=== PATIENT | female | born 1955 | race Caucasian/White ===

== ENCOUNTER 2019-10-09 15:40 | Inpatient (IN) ==
--- NOTE | 2019-10-09 15:57 | PROVIDER DOCUMENTATION ---
HPI-Screening - General Chief Complaint: Shortness of Breath Stated Complaint: SOB BEING TREATED FOR PNEUMONIA Time Seen by Provider: 10/09/19 15:52 Source: patient Allergies/Adverse Reactions: Allergies Allergy/AdvReac Type Severity Reaction Status Date / Time aspirin Allergy Unknown Unknown Verified 08/16/17 12:13 codeine [Codeine] Allergy Unknown Unknown Verified 08/16/17 12:13 Home Medications: Home Medication List Medication Instructions Recorded Confirmed Last Taken Type Carvedilol 12.5 mg PO BID 05/28/13 08/16/17 1 Day Ago History ~08/15/17 Levothyroxine [Synthroid] 75 microgm PO DAILY 05/28/13 08/16/17 1 Day Ago History ~08/15/17 Losartan Potassium [Cozaar] 100 mg PO DAILY 05/28/13 08/16/17 1 Day Ago History ~08/15/17 Trazodone [Desyrel] 150 mg PO QHS 05/28/13 08/16/17 1 Day Ago History ~08/15/17 Diltiazem HCl [Diltiazem ER] 240 mg PO DAILY 01/12/14 08/16/17 1 Day Ago History ~08/15/17 Methocarbamol [Robaxin] 500 - 1,000 mg PO BID PRN #60 08/16/17 Unknown Rx tablet Patient arrived via EMS?: No HPI: Patient is a 64yo F who presents with complaints of SOB, chest tightness, and CP. Reports she is currently being treated for PNA (taking Augmentin) and was told to come to ED by PCP. Reports hx of asthma and states no relief with Albuterol inhaler. Denies fever. Upon examination, patient is able to speak in full sentences, no splinting/accessory muscle usage/retractions/stridor noted. Triage O2 sat 99% on RA. Physical Exam-Screening - PHYSICAL EXAM-ADULT Initial Vital Signs Reviewed: Yes - CONSTITUTIONAL General Appearance: alert, mild distress. negative: lethargic, slow to respond - EYES Eyes: PERRL/EOMI, pink conjunctivae - HEAD, EARS, NOSE, MOUTH & THROAT HENMT: normocephalic/atraumatic, moist mucous membranes - NECK Neck: full range of motion, supple, normal inspection - RESPIRATORY Respiratory: no respiratory distress, no accessory muscle use, wheezing (expiratory; all lung grover). negative: crackles, rales, rhonchi, stridor, retractions, splinting, decreased rate, increased rate - CARDIOVASCULAR Cardiovascular: regular rate, rhythm - SKIN Integumentary: normal color, warm/dry. negative: cyanosis, jaundice, mottled, pallor - NEUROLOGIC Neurologic: grossly normal. negative: aphasia, EOM palsy - PSYCHIATRIC Psych/Mental Status: normal mood/affect, normal thought content, normal thought process, oriented x 3 Screening Depart - Departure ED Screening Disposition: Continued in ED for Treatment Referrals and Follow-Ups: Brent Higginbotham Jr, MD [Primary Care Provider] - Attestation - Physician/ INDRA Attestation Patient care was provided by Advanced Practice Provider:: Yes Advanced Practice Provider:: Nikkie Mancilla Advanced Practice Provider documentation review:: The Mid-level provider documentation, treatment plan and medical decision making was reviewed by the physician who agrees with all treatment and medical decision making by the MLP. The physician spent face to face time with patient:: No Advanced Practice Provider documentation review:: Supervising physician onsite and consulted in the evaluation and care of this patient. The physician did not have a face to face encounter with the patient.
[2019-10-09] MEDS ORDERED: DUONEB (A & A) INH ONE (16:09)
--- NOTE | 2019-10-09 16:14 | ED EKG INTERP ---
This chart was entered by Senia Flanagan Scribe, acting as scribe for Nikkie Mancilla CRNP. EKG Interpretation - EKG Time of EKG reading by physician:: 16:08 EKG Read and Signed by:: Tayo Raygoza EKG Interpretation (*Must complete 3 of following elements*): Normal (voltage criteria for L ventricular hypertrophy) Rate: 83 Rhythm: NSR Attestation - Physician/ INDRA Attestation Patient care was provided by Advanced Practice Provider:: Yes Advanced Practice Provider:: Nikkie Mancilla Advanced Practice Provider documentation review:: The Mid-level provider documentation, treatment plan and medical decision making was reviewed by the physician who agrees with all treatment and medical decision making by the MLP. The physician spent face to face time with patient:: No Advanced Practice Provider documentation review:: Supervising physician onsite and consulted in the evaluation and care of this patient. The physician did not have a face to face encounter with the patient. This chart was documented by the indicated scribe, (Senia Flanagan Scribe) and accurately reflects the services I performed and decisions made by me, Nikkie Mancilla CRNP, as attested by the provider's signature.
[2019-10-09 16:15] LABS: BASO# 0.02 X1000 (0.0-0.2); BASO% 0.3 % (0.0-0.8); EOS# 0.11 X1000 (0.0-0.7); EOS% 1.8 % (0.0-10.0); HEMATOCRIT 34.4 % (37.0-47.0); LYMPH# 2.06 X1000 (1.2-3.4); LYMPH% 33.1 % (20.5-51.1); MCH 23.4 PG (27-31); MCHC 29.1 g/dL (33-37); MCV 80.6 FL (81-99); MONO# 0.28 X1000 (0.11-0.59); MONO% 4.5 % (1.7-9.3); MPV 9.2 FL (7.4-10.4); NEUT# 3.75 X1000 (1.4-6.5); NEUT% 60.3 % (42.2-75.2); PLT 316 X1000 (130-400); RBC 4.27 XMIL (4.2-5.4); RDW 16.1 % (11.5-14.5); WBC 6.22 X1000 (4.8-10.8)
--- NOTE | 2019-10-09 16:18 | Diag Imaging Result Doc PS360 ---
EXAM: CHEST-2 VIEWS HISTORY: sob TECHNIQUE: Two views COMPARISON: 08/16/2017 FINDINGS: The lungs are well expanded. The heart is not enlarged. The vessels are not distended. There are increased interstitial markings in the lingular segment of the left upper lobe. No pleural effusions. IMPRESSION: Left upper lobe pneumonia. Electronically signed by Aakash Vasquez 10/09/2019 4:16 PM
[2019-10-09 16:34] LABS: INR 1.02; PROTIME 13.5 Seconds (11.0-16.0)
[2019-10-09 16:36] LABS: AGAP 14; ALB/GLOB RATIO 1.3; ALBUMIN 3.5 g/dL (3.5-5.0); ALKALINE PHOSPHATASE 65 U/L (32-104); BUN 9 mg/dL (8-22); CALCIUM 8.6 mg/dL (8.8-10.2); CHLORIDE 105 mmol/L (98-107); CK PROFILE 59 U/L (24-173); COSMO 283; CREATININE 0.8 mg/dL (0.5-0.9); ESTIMATED GFR > 60; GLUCOSE 78 mg/dL (70-104); GOT 13 U/L (10-30); GPT 7 U/L (10-36); POTASSIUM 4.2 mmol/L (3.5-5.1); SODIUM 143 mmol/L (136-145); TCO2 24 mmol/L (25-35); TOTAL BILIRUBIN 0.25 mg/dL (0.20-1.00); TOTAL PROTEIN 6.1 g/dL (6.3-8.3)
[2019-10-09] MEDS ORDERED: LEVAQUIN 750 MG/D5W 750 MG/150 ML IVPB IV ONE (16:58)
--- NOTE | 2019-10-09 17:04 | PROVIDER DOCUMENTATION ---
HPI-Respiratory General - General Chief Complaint: Shortness of Breath Stated Complaint: SOB BEING TREATED FOR PNEUMONIA Time Seen by Provider: 10/09/19 15:52 Source: patient Allergies/Adverse Reactions: Patient Allergies Allergy/AdvReac Type Severity Reaction Status Date / Time codeine [Codeine] Allergy Unknown SWELLING Verified 10/09/19 23:10 Home Medications: Home Medication List Medication Instructions Recorded Confirmed Last Taken Type Carvedilol 12.5 mg PO BID 05/28/13 10/09/19 1 Day Ago History ~08/15/17 Levothyroxine [Synthroid] 75 microgm PO DAILY 05/28/13 10/09/19 1 Day Ago History ~08/15/17 Losartan Potassium [Cozaar] 100 mg PO DAILY 05/28/13 10/09/19 1 Day Ago History ~08/15/17 Trazodone [Desyrel] 150 mg PO QHS 05/28/13 10/09/19 1 Day Ago History ~08/15/17 Aspirin [Aspir-Low] 81 mg PO DAILY 10/09/19 10/09/19 Unknown History Diltiazem HCl [Cartia Xt] 240 mg PO DAILY 10/09/19 10/09/19 Unknown History Fluticasone/Salmet 250/50 INH 1 puff INH RTBID 10/09/19 10/09/19 Unknown History [Advair 250/50 Diskus] Multivitamin [Daily Multiple 1 tab PO DAILY 10/09/19 10/09/19 Unknown History Vitamin] Omeprazole 40 mg PO DAILY 10/09/19 10/09/19 Unknown History Solifenacin Succinate 10 mg PO QHS 10/09/19 10/09/19 Unknown History - History of Present Illness-Resp Nature of Presenting Problem: Patient is a 64yo F who presents with complaints of SOB, chest tightness, and CP. Reports she is currently being treated for PNA (taking Augmentin) and was told to come to ED by PCP. Reports hx of asthma and states no relief with Albuterol inhaler. Denies fever. Upon examination, patient is able to speak in full sentences, no splinting/accessory muscle usage/retractions/stridor noted. Triage O2 sat 99% on RA. Quality of Pain: reports: aching, tightness Severity in ED: reports: moderate Onset/Duration: reports: other (x2 weeks) Timing: reports: still present, getting worse Context: reports: recent URI Cough Quality/Degree: reports: moderate, productive cough Episode Frequency: occasional episodes Current Respiratory Medication Therapy: Initiated see nurses note Modifying Factors: improves with: nothing. worse with: exertion Associated Symptoms: reports: chest pain/soreness, cough, short of breath, wheezing. denies: fever/chills Similar Symptoms Previously?: Yes Recently seen or treated by another doctor?: Yes (saw PCP 2 weeks ago) Review of Systems - Adult - REVIEW OF SYSTEMS - ADULT Constitutional: reports: no symptoms reported. denies: chills, fever Eyes: reports: no symptoms reported Ears, Nose, Mouth & Throat: reports: no symptoms reported. denies: ear pain, throat pain Cardiovascular: reports: see HPI, chest pain. denies: syncope Respiratory: reports: see HPI, cough, dyspnea on exertion, shortness of breath, wheezing Gastrointestinal: reports: no symptoms reported. denies: abdominal pain, nausea, vomiting Genitourinary: reports: no symptoms reported Musculoskeletal: reports: no symptoms reported Integumentary: reports: no symptoms reported Neurological: reports: no symptoms reported Psychiatric: reports: no symptoms reported Endocrine: reports: no symptoms reported Past History - Adult - PAST MEDICAL HISTORY-ADULT Review of Records: reports: Nursing Assessment Review, Medications Reviewed, Social history reviewed & non-contributory. Major Childhood Illnesses: reports: denies history Cardiovascular: reports: arrhythmia, HTN, palpitations Respiratory: reports: asthma Gastrointestinal: reports: GERD Obstetrical/Gynecological: reports: denies history Genitourinary: reports: denies history Musculoskeletal: reports: arthritis, chronic pain, orthopedic injury (old rt elbow fx) Neurological: reports: CVA, other (dizziness) Psychiatric: reports: anxiety Endocrine/Immune: reports: Diabetes, thyroid disorder Other Conditions: reports: denies history - PRIOR SURGERIES/PROCEDURES Surgical/Procedure History: reports: reviewed, not pertinent, hysterectomy, hernia repair - PRIOR HOSPITALIZATIONS Prior Hospitalizations: reports: for other non-related - IMMUNIZATION STATUS Childhood Immunizations: See Nurse Assessment Flu Vaccine: See Nurse Assessment - FAMILY HISTORY Family History: aortic disease, sudden , CAD under 55yo, CVA/TIA, hereditary disease - SOCIAL HISTORY Smoking: denies, non-smoker Physical Exam-General - PHYSICAL EXAM-ADULT Initial Vital Signs Reviewed: Yes - CONSTITUTIONAL General Appearance: alert, mild distress. negative: lethargic, slow to respond, obtunded - EYES Eyes: PERRL/EOMI, pink conjunctivae. negative: EOM palsy, scleral icterus - HEAD, EARS, NOSE, MOUTH & THROAT HENMT: normocephalic/atraumatic, moist mucous membranes. negative: angioedema - NECK Neck: non-tender, full range of motion, supple, normal inspection. negative: C- spine tenderness, limited range of motion - RESPIRATORY Respiratory: chest non-tender, no respiratory distress, no accessory muscle use, decreased breath sounds (diminished L lobes), wheezing. negative: crackles, rales, rhonchi, retractions, splinting, increased rate - CARDIOVASCULAR Cardiovascular: regular rate, rhythm - MUSCULOSKELETAL Back Exam: normal inspection Extremity: normal range of motion, non-tender - SKIN Integumentary: normal color, warm/dry. negative: cyanosis, jaundice, mottled, pallor - NEUROLOGIC Neurologic: grossly normal. negative: abnormal gait, aphasia, EOM palsy - PSYCHIATRIC Psych/Mental Status: normal mood/affect, normal thought content, normal thought process, oriented x 3 Progress - PLAN OF CARE/RESULTS Progress/Plan/Lab Results: Laboratory Results - last 24 hr 10/09/19 10/09/19 10/09/19 17:25 18:05 18:11 Specimen Type ARTERIAL Sample Site R RADIAL pH 7.51 H pCO2 31 L pO2 91 HCO3 26.5 H Base Excess 2.0 Oxyhemoglobin 96.6 ABG O2 Sat (Calculated) 14.0 L ABG O2 Saturation 99.2 ABG Carboxyhemoglobin 1.60 ABG Methemoglobin 1.1 Maxwell Test YES A-a O2 Difference 20.0 Total Hemoglobin 10.2 L Lactate 1.10 Blood Gas Modality ROOM AIR FiO2 % 21.0 POC Glucose Plasma Lactate 1.1 Urine Source CLEAN CATCH Urine Color YELLOW Urine Turbidity CLEAR Urine pH 7.0 Ur Specific [place] 1.008 Urine Protein NEGATIVE Ur Glucose (Stick) NEGATIVE Ur Ketones (Stick) NEGATIVE Urine Blood NEGATIVE Urine Nitrite NEGATIVE Urine Bilirubin NEGATIVE Urobilinogen Dipstick NORMAL Urine Leukocytes TRACE A Urine WBC (Auto) <10 Urine RBC (Auto) <10 U Epithel Cells (Auto) <10 Urine Bacteria (Auto) NEGATIVE 10/09/19 19:35 Specimen Type Sample Site pH pCO2 pO2 HCO3 Base Excess Oxyhemoglobin ABG O2 Sat (Calculated) ABG O2 Saturation ABG Carboxyhemoglobin ABG Methemoglobin Maxwell Test A-a O2 Difference Total Hemoglobin Lactate Blood Gas Modality FiO2 % POC Glucose 81 Plasma Lactate Urine Source Urine Color Urine Turbidity Urine pH Ur Specific [place] Urine Protein Ur Glucose (Stick) Ur Ketones (Stick) Urine Blood Urine Nitrite Urine Bilirubin Urobilinogen Dipstick Urine Leukocytes Urine WBC (Auto) Urine RBC (Auto) U Epithel Cells (Auto) Urine Bacteria (Auto) Orders Category Date Time Status Admit - [facility] Routine AdmDCTranf 10/09/19 17:49 Active Activity - Up Ad Johanna ORDERED Care 10/09/19 22:06 Active Blood Glucose Finger Stick [FSBS/Accucheck Result] Q4HR Care 10/09/19 17:54 Active Call Admitting on Arrival AT ADMISSION Care 10/09/19 22:06 Completed Cardiac Monitoring DIRECTED Care 10/09/19 15:58 Completed FALL Precautions now Care 10/09/19 22:06 Active Neurological Check ORDERED Care 10/09/19 22:06 Active Oxygen Therapy- ED Nursing DIRECTED Care 10/09/19 15:58 Completed Saline Loc NOW Care 10/09/19 15:58 Completed Vital Signs Order ORDERED Care 10/09/19 22:06 Active Z-Document. for Tele Applied ORDERED Care 10/09/19 22:06 Completed Diabetic Diet Diet 10/09/19 22:06 Active CHEST-2 VIEWS [RAD] Stat Exams 10/09/19 15:58 Completed A1C HGB W EST AVG GLUCOSE [CHEM] Routine Lab 10/10/19 07:44 Completed ABG [RESP] Routine Lab 10/09/19 18:05 Completed BLOOD CULTURE [BLDCUL] Stat Lab 10/09/19 17:33 Results CBC WITH DIFF [HEME] Routine Lab 10/10/19 07:44 Completed CBC WITH ELECTRONIC DIFF [HEME] Stat Lab 10/09/19 16:07 Completed CK PROFILE [SP CHEM] Stat Lab 10/09/19 16:07 Completed CMP [COMPREHENSIVE METABOLIC PANEL] [CHEM] Routine Lab 10/10/19 07:44 Completed COMPREHENSIVE METABOLIC PANEL [CHEM] Stat Lab 10/09/19 16:07 Completed FREE T4 Routine Lab 10/10/19 07:44 Completed LACTATE, PLASMA [CHEM] Stat Lab 10/09/19 17:25 Completed MAGNESIUM [CHEM] Routine Lab 10/10/19 07:44 Completed PRO B-NATRIURETIC PEPTIDE Stat Lab 10/09/19 16:07 Completed PROTIME WITH INR [COAG] Stat Lab 10/09/19 16:07 Completed PTT [COAG] Stat Lab 10/09/19 16:07 Completed TROPONIN T HIGH SENSITIVITY Stat Lab 10/09/19 16:07 Completed TSH Routine Lab 10/10/19 07:44 Completed URINALYSIS W/POSS RFLX CULT [URINALYSIS] Stat Lab 10/09/19 18:11 Completed VITAMIN B12 Routine Lab 10/10/19 07:44 Completed Albuterol 2.5MG/Ipratrop 0.5MG [Duoneb (A & A)] Med 10/09/19 16:09 Discontinued 3 ml INH NOW ONE Albuterol 2.5MG/Ipratrop 0.5MG [Duoneb (A & A)] Med 10/09/19 22:06 Active 3 ml INH RTQ6H Aspirin EC Med 10/10/19 09:00 Active 81 mg PO DAILY Carvedilol [Coreg] Med 10/09/19 22:06 Active 12.5 mg PO BID Diltiazem C.d. [Cardizem Cd] Med 10/10/19 09:00 Active 240 mg PO DAILY Enoxaparin [Lovenox] Med 10/09/19 22:06 Active 30 mg SUBQ Q24H Fluticasone/Salmet 250/50 INH [Advair 250/50 Diskus] Med 10/09/19 22:06 Active 1 puff INH RTBID Insulin Human Regular [Humulin R] Med 10/09/19 17:54 Discontinued See Protocol SUBQ NOW ONE Levofloxacin 500 mg/D5w [Levaquin 500 mg/D5w] Med 10/10/19 11:00 Active 500 mg in 100 ml IV Q24H Levofloxacin 750 mg/D5w [Levaquin 750 mg/D5w] Med 10/09/19 16:58 Discontinued 750 mg in 150 ml IV NOW Levothyroxine [Synthroid] Med 10/10/19 07:00 Active 75 microgm PO DAILY@0700 Losartan [Cozaar] Med 10/10/19 09:00 Active 100 mg PO DAILY Multivit,Fe,Ca,FA & Min [Thera M Plus] Med 10/10/19 09:00 Active 1 each PO DAILY Ns + KCl 20 Meq 1,000 ml Med 10/09/19 22:06 Discontinued IV 85 mls/hr Omeprazole [Prilosec] Med 10/10/19 07:00 Active 40 mg PO DAILY@0700 Ondansetron [Zofran] Med 10/09/19 17:32 Discontinued 4 mg IV NOW ONE Pharmacy Order [Vancomycin IV Per Pharmacy] Med 10/09/19 22:06 Active 1 each MISC DIRECTED Solifenacin [Vesicare] Med 10/09/19 22:06 Active 10 mg PO QHS Trazodone [Desyrel] Med 10/09/19 22:06 Active 150 mg PO QHS Aerosol Treatments Routine Ot 10/09/19 16:09 Completed Aerosol Treatments Routine Ot 10/09/19 22:06 Completed Aerosol Treatments Stat Ot 10/09/19 16:09 Completed Aerosol Treatments Stat Oth 10/09/19 22:06 Completed CP/SOB/Palp >45 yrs of Age Stat Oth 10/09/19 15:57 Ordered MDI Treatments Stat Oth 10/09/19 22:06 Completed Oxygen Device Routine Oth 10/09/19 22:06 Completed Telemetry [OM.EQ] Routine Oth 10/09/19 22:06 Active EKG [EKG] Stat Ther 10/09/19 15:58 Draft Transfer/Admit Order [TRANSFER] Routine Transfer 10/09/19 17:51 Completed Lab results, imaging results, and need for admission discussed with patient who agrees with and verbalizes understanding. Result Diagrams: 10/10/19 07:44 10/10/19 07:44 - REASSESSMENT Reassessment #1 Time Reassessed: 17:40 Status: improving Reassessment Comment: Mild improvement in wheezing post neb - XRAY 1 XRAY: Bilateral XRAY Study: Chest Impression: See EMR Report ([facility] - [address], [address], [place] [address] [facility] - [address] [place] [address] Department of Imaging Patient: EMILIE BELLE PRATEEK Date: 10/09/19MR#: [id number] : 6ADM Status: PRE ERAcct#: [id number] Age/Sex: 64/FRoom/Bed: Loc: ED Ordering Physician: Nikkie Montano Family Physician: Brent Higginbotham Jr, MD Reason for Procedure: sob Signed EXAM: CHEST-2 VIEWS HISTORY: sob TECHNIQUE: Two views COMPARISON: 08/16/2017 FINDINGS: The lungs are well expanded. The heart is not enlarged. The vessels are not distended. There are increased interstitial markings in the lingular segment of the left upper lobe. No pleural effusions. IMPRESSION: Left upper lobe pneumonia. Electronically signed by Aakash Vasquez 10/09/2019 4:16 PM 10/09/19 1616 Interpreting Physician: Aakash Vasquez MD Dictated Date/Time: 10/09/19 1615 cc: Nikkie Mancilla; Brent Higginbotham Jr, MD) - CONSULTS/PCP/HOSPITALIST Notification #1 *Consult/PCP/Hospitalist*: Dr. Mace, health education director for Dr. Higginbotham Time Discussed: 17:44 Reason/Comments: OCTAVIO PNA; failure outpatient tx; SOB Consult Disposition: Admit Departure - Departure Date of Disposition Decision: 10/09/19 Time of Disposition Decision: 17:44 DIAGNOSIS: Failure of outpatient treatment, Shortness of breath Left upper lobe pneumonia Qualifiers: Pneumonia type: due to unspecified organism Qualified Code(s): J18.1 - Lobar pneumonia, unspecified organism Chest pain Qualifiers: Chest pain type: unspecified Qualified Code(s): R07.9 - Chest pain, unspecified Disposition: ADMITTED INPATIENT 09 Certified Medical Emergency: Emergent Condition: Stable - Critical Care Note This patient required my direct & personal management of CC.: No Attestation - Physician/ INDRA Attestation Patient care was provided by Advanced Practice Provider:: Yes Advanced Practice Provider:: Nikkie Mancilla Advanced Practice Provider documentation review:: The Mid-level provider documentation, treatment plan and medical decision making was reviewed by the physician who agrees with all treatment and medical decision making by the MLP. The physician spent face to face time with patient:: No Advanced Practice Provider documentation review:: Supervising physician onsite and consulted in the evaluation and care of this patient. The physician did not have a face to face encounter with the patient.
[2019-10-09] MEDS ORDERED: ZOFRAN IV ONE (17:32)
[2019-10-09] MEDS ORDERED: HUMULIN R SUBQ ONE (17:54)
[2019-10-09 18:18] LABS: ALLEN TEST YES; BLOOD TYPE ARTERIAL; HCO3-(ACT) 26.5 mmoll (20.0-26.0); METHB 1.1 % (0.0-1.5); O2HB 96.6 % (95.0-99.0); PCO2(98.6) 31 mmHg (35-45); PO2(98.6) 91 mmHg (60-100); SAMPLE BLOOD; SAO2 99.2 % (95.0-100.0); THB 10.2 g/dL (11.5-17.4); pH(98.6) 7.51 (7.35-7.45)
[2019-10-09 18:19] LABS: MODALITY ROOM AIR
[2019-10-09 19:00] LABS: URINE SOURCE CLEAN CATCH
[2019-10-09 19:06] LABS: BILIRUBIN URINE NEGATIVE (NEGATIVE); BLOOD URINE NEGATIVE (NEGATIVE); COLOR YELLOW; GLUCOSE URINE NEGATIVE (NEGATIVE); KETONE URINE NEGATIVE (NEGATIVE); LEUKOCYTES URINE TRACE (NEGATIVE); NITRITE URINE NEGATIVE (NEGATIVE); PROTEIN URINE NEGATIVE (NEGATIVE); SP GRAVITY URINE 1.008; TURBIDITY URINE CLEAR (CLEAR); UROBILINOGEN URINE NORMAL (NORMAL)
[2019-10-09 19:07] LABS: UR EPITHELIAL CELLS <10 /HPF (<10); URINE BACTERIA NEGATIVE /HPF; URINE RBC <10 /HPF (<10); URINE WBC <10 /HPF (<10)
--- NOTE | 2019-10-09 19:30 | EKG Report ---
Test Performed on : 10/09/2019 4:04:56 PM Test Reason : sob Blood Pressure : / mmHG Vent. Rate : 083 BPM Atrial Rate : 083 BPM P-R Int : 154 ms QRS Dur : 088 ms QT Int : 382 ms P-R-T Axes : 042 -25 012 degrees QTc Int : 448 ms Normal sinus rhythm. Voltage criteria for left ventricular hypertrophy Abnormal ECG When compared with ECG of 16-AUG-2017 11:51, No significant change was found Unconfirmed Result
--- NOTE | 2019-10-09 21:49 | HISTORY AND PHYSICAL ---
CHIEF COMPLAINT: Pneumonia. HISTORY OF PRESENT ILLNESS: Ms. Contreras is a 64-year-old, white female patient who came to the emergency room because of chest congestion, cough, shortness of breath. Patient started getting sick 10 days ago. The patient had fever, chills, chest congestion, went to see PMD, diagnosed to have pneumonia. The patient was given Augmentin, which she was taking it. The patient was not getting better. She went to see PMD again, gave her more antibiotics and Z-Allan. The patient claimed she continued not to feel better, increasing cough, chest congestion. The patient was feeling weak. Patient had underlying bronchial asthma. She was feeling short of breath, cough, coughing up yellowish phlegm. Patient did have some nausea but no vomiting. The patient had urinary frequency, urgency but no dysuria. The patient claimed at times she was feeling weak and unsteady gait. As per PMD's recommendation, if she does not get better she was told to come to the ER. The patient came to the emergency room for evaluation. In the emergency room, her chest x-ray did reveal left upper lobe pneumonia. The patient was symptomatic, and ER physician decided to admit the patient for further care. The patient claims to have some diarrhea today. No blood or mucus in the stool. Chest soreness when she coughs. She denied any hemoptysis. No dysphagia or odynophagia. No heat or cold intolerance. The patient did have polyuria, polydipsia. No runny nose, stuffy nose. No major weight loss or weight gain. Minimal swelling both the legs, but more on the left leg. No heat or cold intolerance. The patient does have arthritic pain in the knee. The patient denied any major depression, but patient was anxious about her health. ALLERGIES: Codeine. PAST MEDICAL HISTORY: Significant for bronchial asthma, history of gastric band x2, hypertension, hypothyroidism, gastritis and reflux disease, urinary incontinence, insomnia, osteoarthritis. The patient had hysterectomy. The patient had lap band surgery done x2. PERSONAL HISTORY: , lives with the . Nonsmoker. Denied alcohol or substance abuse. Fairly independent in activities of daily living. FAMILY HISTORY: Significant for hypertension, diabetes, congestive heart failure. The patient claimed out of 8 family members only 2 are living. REVIEW OF SYSTEMS: As per HPI. Otherwise unobtainable. HOME MEDICATIONS: Includes Coreg 12.5 mg twice a day, cardia XT, Advair, Synthroid, Cozaar, multivitamin, Prilosec, VESIcare, trazodone, aspirin, and ProAir HFA. The patient is on Augmentin and Z-Allan started 2 days ago. PHYSICAL EXAMINATION: GENERAL: Middle-aged white female patient in mild distress. VITAL SIGNS: Blood pressure 150/76, pulse 82, respirations 15, temperature 97.5 degrees. SKIN: Normal turgor. No rash or petechiae. HEAD: Atraumatic, normocephalic. EYES: [place] conjunctivae. Anicteric sclerae. Extraocular muscle movement normal. Fundus cannot be penetrated. ENT: Good oral hygiene. No tonsillopharyngeal congestion or exudate. Ears and nose benign. NECK: Supple. No JVD, thyromegaly or lymphadenopathy. CHEST: Bibasilar crepitation, occasional wheezing. CARDIOVASCULAR: S1 and S2 heard. No gallop or thrill. ABDOMEN: Soft, globular. Bowel sounds present. No organomegaly or mass. EXTREMITIES: No cyanosis, clubbing. No acute DVT. Peripheral pulsation intact. CENTRAL NERVOUS SYSTEM: Alert, awake, able to move all 4 limbs. Crepitation in both the knee joints. The patient does have minimal swelling in both the legs. CONSIDERATION: 1. Left upper lobe pneumonia, not responding to outpatient treatment. 2. History of bronchial asthma. 3. Obesity. 4. Hypertension. 5. Hypothyroidism. 6. Gastritis and reflux disease. 7. Urinary incontinence. 8. Obesity. PLAN: Admit the patient. IV antibiotics, pulmonary toilet, DVT and GI prophylaxis. Check appropriate labs. Overall plan discussed at length with the patient, and she is in agreement. LABORATORY DATA: Revealed hemoglobin 10, hematocrit 34.4, platelet count 316,000, WBC count 6.22. PT/INR 1.02, PTT 29.4. Blood gas results reviewed. Potassium 4.2. ProBNP 376. Overall plan discussed at length with the patient and she is in agreement. cc: Gustavo Mace MD
[2019-10-09] MEDS ORDERED: VANCOMYCIN IV PER PHARMACY MISC SCH (22:06)
[2019-10-09] MEDS ORDERED: NS + KCL 20 MEQ 1,000 ML IV ONE (22:06)
[2019-10-09] MEDS: ADVAIR 250/50 DISKUS INH SCH (22:55)
[2019-10-09] MEDS: DUONEB (A & A) INH SCH (22:56)
[2019-10-09] MEDS: VESICARE PO SCH (23:00)
[2019-10-09] MEDS: DESYREL PO SCH (23:00)
[2019-10-09] MEDS ORDERED: VANCOMYCIN 2,250 MG in NS 500 ML IV ONE (23:00)
[2019-10-09] MEDS: COREG PO SCH (23:00)
[2019-10-09] MEDS: LOVENOX SUBQ SCH (23:00)
[2019-10-10] MEDS: DUONEB (A & A) INH SCH ×4 (03:29→22:05)
[2019-10-10] MEDS: PRILOSEC PO SCH (06:20)
[2019-10-10] MEDS: SYNTHROID PO SCH (06:20)
[2019-10-10 07:58] LABS: BASO# 0.01 X1000 (0.0-0.2); BASO% 0.2 % (0.0-0.8); EOS# 0.12 X1000 (0.0-0.7); EOS% 2.6 % (0.0-10.0); HEMATOCRIT 30.6 % (37.0-47.0); HEMOGLOBIN 8.6 g/dL (12.0-16.0); LYMPH# 1.36 X1000 (1.2-3.4); LYMPH% 28.9 % (20.5-51.1); MCH 23.1 PG (27-31); MCHC 28.1 g/dL (33-37); MCV 82.3 FL (81-99); MONO# 0.22 X1000 (0.11-0.59); MONO% 4.7 % (1.7-9.3); MPV 9.6 FL (7.4-10.4); NEUT# 2.99 X1000 (1.4-6.5); NEUT% 63.6 % (42.2-75.2); PLT 252 X1000 (130-400); RBC 3.72 XMIL (4.2-5.4); RDW 16.2 % (11.5-14.5)
[2019-10-10] MEDS: ADVAIR 250/50 DISKUS INH SCH ×2 (08:26→20:44)
[2019-10-10 08:32] LABS: AGAP 9; ALB/GLOB RATIO 1.2; ALBUMIN 2.8 g/dL (3.5-5.0); ALKALINE PHOSPHATASE 52 U/L (32-104); BUN 9 mg/dL (8-22); CALCIUM 7.9 mg/dL (8.8-10.2); CHLORIDE 109 mmol/L (98-107); COSMO 281; CREATININE 0.8 mg/dL (0.5-0.9); ESTIMATED GFR > 60; GLUCOSE 92 mg/dL (70-104); GOT 11 U/L (10-30); GPT 6 U/L (10-36); POTASSIUM 4.2 mmol/L (3.5-5.1); SODIUM 142 mmol/L (136-145); TCO2 24 mmol/L (25-35); TOTAL BILIRUBIN 0.23 mg/dL (0.20-1.00); TOTAL PROTEIN 5.2 g/dL (6.3-8.3)
[2019-10-10] MEDS: ASPIRIN EC PO SCH (09:27)
[2019-10-10] MEDS: THERA M PLUS PO SCH (09:27)
[2019-10-10] MEDS: COZAAR PO SCH (09:27)
[2019-10-10] MEDS: CARDIZEM CD PO SCH (09:27)
[2019-10-10] MEDS: COREG PO SCH ×2 (09:28→20:39)
[2019-10-10] MEDS: LEVAQUIN 500 MG/D5W 500 MG/100 ML IVPB IV SCH (11:40)
[2019-10-10 12:30] LABS: FREE T4 1.1 ng/dL (0.93-1.70); TSH 1.4 uIUmL (0.27-4.20)
[2019-10-10 13:44] LABS: IRON SATURATION 10 %; TIBC 251 ug/dL; TOTAL IRON 24 ug/dL (49-151); UNBOUND IRON 227 ug/dL (112-346)
[2019-10-10] MEDS: VANCOMYCIN 1,750 MG in NS 500 ML IV SCH (17:38)
[2019-10-10] MEDS: VESICARE PO SCH (20:37)
[2019-10-10] MEDS: DESYREL PO SCH (20:37)
--- NOTE | 2019-10-10 21:51 | PROGRESS NOTE ---
DATE: 10/10/2019 SUBJECTIVE: Ms. Contreras is doing some better. The patient does have mild cough, no unusual expectoration. No high-grade fever or chills. The patient claims she was getting short of breath going to the bathroom. Her hemoglobin was 8.6 this morning but no unusual bleeding. Vague chest pain. Denied any hematuria, hematemesis or melena. No nosebleed. The patient admitted with pneumonia, denied any high-grade fever or chills. Her admission history and physical reviewed again with the patient. OBJECTIVE: Her vital signs noted. Head atraumatic, normocephalic. [place] conjunctivae. Anicteric sclerae. Extraocular muscle movement normal. Fundus cannot be penetrated. Good oral hygiene. No tonsillopharyngeal congestion or exudate. Ears and nose benign. Neck: Supple. No JVD, thyromegaly or lymphadenopathy. Chest: Bilateral good air entry present. CVS: S1 and S2 heard. Abdomen: Soft, nontender. Bowel sounds present. MATRIX PLATER: Alert, awake. Able to move all 4 limbs. Crepitation in both the knee joints. ASSESSMENT: The patient's problem include: 1. Left upper lobe pneumonia. Clinically the patient does not act like pneumonia. I am going to get a CT scan of the chest for further evaluation. 2. The patient is anemic. I did check a ferritin level. Serum iron was low, TIBC 251, iron saturation was low. 3. The patient does have chronic obstructive pulmonary disease (COPD). 4. History of gastric band surgery x2, obesity. 5. Hypothyroidism. PLAN: I am going to get CT scan of the chest for further evaluation. Renal function is satisfactory. Continue rest of the treatment and close observation. cc: Gustavo Mace MD
[2019-10-10] MEDS: LOVENOX SUBQ SCH (22:12)
[2019-10-11] MEDS: DUONEB (A & A) INH SCH ×4 (04:10→23:00)
[2019-10-11] MEDS: PRILOSEC PO SCH (06:22)
[2019-10-11] MEDS: SYNTHROID PO SCH (06:22)
[2019-10-11] MEDS: ADVAIR 250/50 DISKUS INH SCH ×2 (08:02→22:58)
[2019-10-11] MEDS: COZAAR PO SCH (08:53)
[2019-10-11] MEDS: COREG PO SCH ×2 (08:53→21:43)
[2019-10-11] MEDS: THERA M PLUS PO SCH (08:53)
[2019-10-11] MEDS: ASPIRIN EC PO SCH (08:53)
[2019-10-11] MEDS: CARDIZEM CD PO SCH (08:53)
--- NOTE | 2019-10-11 10:58 | Diag Imaging Result Doc PS360 ---
EXAM: CT THORAX W/CONTRAST HISTORY: pneumonia TECHNIQUE: CT chest with intravenous contrast COMPARISON: 12/07/2014 FINDINGS: Trace right pleural fluid. No left pleural effusion. There is thickening to the wall of the esophagus. Heart is borderline mildly prominent. There are small mediastinal nodes. No aortic aneurysm or dissection. There are small infiltrates in the lingular segment of the left upper lobe and inferiorly in the right lower lobe. There is atelectasis in the lung bases. IMPRESSION: 1.Small bilateral infiltrates 2.Esophageal wall thickening which may be related to esophagitis. Further workup recommended. This exam was performed using automated exposure control, adjustment of mA or kV according to patient size, and/or use of iterative reconstruction technique. Electronically signed by Aakash Vasquez 10/11/2019 10:56 AM
[2019-10-11] MEDS: VANCOMYCIN 1,750 MG in NS 500 ML IV SCH (11:20)
[2019-10-11] MEDS: LEVAQUIN 500 MG/D5W 500 MG/100 ML IVPB IV SCH (11:20)
--- NOTE | 2019-10-11 13:06 | PROGRESS NOTE ---
DATE: 10/11/2019 SUBJECTIVE: Ms. Contreras is doing better. Her cough is getting better. Shortness of breath is less. No dysuria or hematuria. Denied any diarrhea, blood or mucus in the stool. The patient had a CT scan of the chest done today which did reveal small bilateral infiltrate, esophageal wall thickening which may be related to esophagitis. OBJECTIVE: Vital Signs: Noted. Neck: Supple. No JVD. Lungs: Bilateral good air entry present. Occasional wheezing. CVS: S1 and S2 heard. Abdomen: Soft, globular. Bowel sounds present. Extremities: No cyanosis, clubbing. No acute DVT. CUSTOMS ENTRY CLERK: Alert, awake. Able to move all 4 limbs. CONSIDERATION: 1. Pneumonia. We will continue antibiotics. 2. Gastritis and reflux disease. Discussed her CT scan results with the patient and also emphasized need for outpatient upper gastrointestinal endoscopy. 3. Hypothyroidism, on Synthroid. 4. Urinary incontinence. We will continue current treatment. PLAN: I am going to repeat blood work tomorrow. If clinical condition permits, we will plan discharging patient home soon. cc: Gustavo Mace MD
[2019-10-11] MEDS: VESICARE PO SCH (21:42)
[2019-10-11] MEDS: DESYREL PO SCH (21:42)
[2019-10-11] MEDS: LOVENOX SUBQ SCH (21:43)
[2019-10-12] MEDS: DUONEB (A & A) INH SCH ×4 (03:12→23:06)
[2019-10-12 03:59] LABS: BASO# 0.02 X1000 (0.0-0.2); BASO% 0.4 % (0.0-0.8); EOS# 0.09 X1000 (0.0-0.7); EOS% 1.7 % (0.0-10.0); HEMATOCRIT 31.8 % (37.0-47.0); HEMOGLOBIN 9.3 g/dL (12.0-16.0); LYMPH# 2.04 X1000 (1.2-3.4); LYMPH% 39.5 % (20.5-51.1); MCH 23.8 PG (27-31); MCHC 29.2 g/dL (33-37); MCV 81.3 FL (81-99); MONO# 0.21 X1000 (0.11-0.59); MONO% 4.1 % (1.7-9.3); MPV 9.5 FL (7.4-10.4); NEUT% 54.3 % (42.2-75.2); PLT 230 X1000 (130-400); RBC 3.91 XMIL (4.2-5.4); WBC 5.16 X1000 (4.8-10.8)
[2019-10-12 04:22] LABS: AGAP 8; ALB/GLOB RATIO 1.2; ALBUMIN 2.9 g/dL (3.5-5.0); ALKALINE PHOSPHATASE 56 U/L (32-104); BUN 11 mg/dL (8-22); CALCIUM 8.5 mg/dL (8.8-10.2); CHLORIDE 108 mmol/L (98-107); COSMO 279; CREATININE 0.8 mg/dL (0.5-0.9); ESTIMATED GFR > 60; GLUCOSE 108 mg/dL (70-104); GOT 11 U/L (10-30); GPT 5 U/L (10-36); POTASSIUM 3.9 mmol/L (3.5-5.1); SODIUM 140 mmol/L (136-145); TCO2 24 mmol/L (25-35); TOTAL BILIRUBIN 0.15 mg/dL (0.20-1.00); TOTAL PROTEIN 5.4 g/dL (6.3-8.3)
[2019-10-12] MEDS ORDERED: TYLENOL PO PRN (06:29)
[2019-10-12] MEDS: SYNTHROID PO SCH (06:30)
[2019-10-12] MEDS: VANCOMYCIN 1,750 MG in NS 500 ML IV SCH ×2 (06:30→23:42)
[2019-10-12] MEDS: PRILOSEC PO SCH (06:30)
--- NOTE | 2019-10-12 07:07 | PROGRESS NOTE ---
DATE: 10/12/2019 SUBJECTIVE: The patient is doing better. Chest congestion and cough improving. Her shortness of breath is getting better. Oral intake is also improving. No nausea or vomiting. Denied any diarrhea. OBJECTIVE: Her vital signs noted.Neck: Supple. No JVD. Lungs: Bilateral good air entry present. CVS: S1 and S2 heard. Abdomen: Soft and globular. Bowel sounds are present. RUG SETTER VELVET: Alert, awake, and able to move all 4 limbs. LABORATORY DATA: Lab data done today, hemoglobin 9.3 and hematocrit 31.8. WBC count 5.16. Platelet count 230,000. Her electrolytes fairly benign. BUN 11 and creatinine 0.8. Vitamin B12 and folate level reviewed. CONSIDERATION: Pneumonia, COPD, urinary incontinence, gastritis and reflux disease. Overall, patient is getting better. Continue current treatment. Ambulate the patient in the room and hallway. If clinical condition permits, we will plan on discharging patient home soon. cc: Gustavo Mace MD
[2019-10-12] MEDS: CARDIZEM CD PO SCH (09:52)
[2019-10-12] MEDS: THERA M PLUS PO SCH (09:52)
[2019-10-12] MEDS: COREG PO SCH ×2 (09:53→20:37)
[2019-10-12] MEDS: COZAAR PO SCH (09:53)
[2019-10-12] MEDS: ASPIRIN EC PO SCH (09:53)
[2019-10-12] MEDS: ADVAIR 250/50 DISKUS INH SCH ×2 (10:25→23:06)
[2019-10-12] MEDS: LEVAQUIN 500 MG/D5W 500 MG/100 ML IVPB IV SCH (13:05)
[2019-10-12] MEDS: LOVENOX SUBQ SCH (20:37)
[2019-10-12] MEDS: VESICARE PO SCH (20:38)
[2019-10-12] MEDS: DESYREL PO SCH (20:38)
[2019-10-13] MEDS: DUONEB (A & A) INH SCH ×2 (03:37→07:59)
[2019-10-13] MEDS: PRILOSEC PO SCH (06:38)
[2019-10-13] MEDS: SYNTHROID PO SCH (06:38)
[2019-10-13] MEDS: ADVAIR 250/50 DISKUS INH SCH (07:59)
[2019-10-13 08:03] VITALS: BP 112/56
[2019-10-13] MEDS: ASPIRIN EC PO SCH (08:06)
[2019-10-13] MEDS: COREG PO SCH (08:06)
[2019-10-13] MEDS: CARDIZEM CD PO SCH (08:06)
[2019-10-13] MEDS: COZAAR PO SCH (08:07)
[2019-10-13] MEDS: THERA M PLUS PO SCH (08:07)
[2019-10-13] MEDS ORDERED: FLU VACCINE IM ONE (08:08)
[2019-10-13] MEDS ORDERED: PNEUMOVAX 23 IM ONE (08:08)
--- NOTE | 2019-10-14 03:11 | DISCHARGE SUMMARY ---
ADMISSION DATE: 10/09/2019 DISCHARGE DATE: 10/13/2019 FINAL DISCHARGE DIAGNOSES: 1. Bilateral pneumonia not responding to outpatient treatment. 2. Gastritis and reflux disease. 3. Esophagitis. 4. Hypertension. 5. Hypothyroidism. 6. Urinary incontinence. 7. Osteoarthritis. 8. Obesity. Patient had gastric band surgery done twice. 9. Iron-deficiency anemia. HISTORY OF PRESENT ILLNESS: Ms. Contreras is a 64-year-old, white female patient admitted with chest congestion, cough, shortness of breath. The patient was getting outpatient treatment. The patient was not getting any better. The patient had increasing cough, chest congestion, feverish feeling, shortness of breath. Patient has underlying history of bronchial asthma. As per PMD's advise, the patient came to the ER. Found to have persistent pneumonia. The patient was admitted, started on IV antibiotics, pulmonary toilet, bronchodilator treatment. Her clinical condition gradually improved. The patient did not have a high-grade fever or chills. I was concerned. I did CT scan of the chest which did reveal bilateral infiltrate. No evidence of pulmonary mass, esophageal wall thickening which may be related to esophagitis, further workup recommended. Overall, patient clinical condition stabilized. Her shortness of breath, exercise tolerance improved. She denied any fever or chills. Her cough and chest congestion improved. Overall, patient received maximum benefit of hospitalization and I am going to discharge patient home today. The patient is in agreement. Blood work done on October 12: Hemoglobin 9.3, hematocrit 31.8. WBC count 5.16, platelet count 230,000. We did a serum iron level, was 24, TIBC 251, ferritin was 12, which was low. Advised patient to start taking iron supplement. Vitamin B12 was 1586, folate 16.1, TSH 1.4, free T4 1.11. Urinalysis was benign. Overall patient received maximum benefit of hospitalization. We will discharge patient home today. DISCHARGE PHYSICAL EXAMINATION: Vital signs: Noted. Neck: Supple. No JVD. Lungs: Bilateral good air entry present. Cardiovascular: S1 and S2 heard. Abdomen: Soft, globular. Bowel sounds present. Crepitation at both the knee joints. BENDER HAND: Alert, awake. Able to move all 4 limbs. DISCHARGE INSTRUCTIONS: Advised patient to eat small, frequent meals, chew her food properly. Follow up with Dr. Higginbotham next week. She will need GI workup for her anemia and thickened esophageal wall. In case of more distress, call us back or go to emergency room. DISCHARGE MEDICATION: As per separate sheet. I am going to send her home on Levaquin. Continue Advair and bronchodilator treatment. cc: Gustavo Mace MD
== END 2019-10-13 10:41 | disposition home or self-care (01) | DRG 194 ==
LOC: ED 15:40 → 3N 20:08
PROVIDERS: ADMIT Internal Medicine; ATTEND Internal Medicine